=== PATIENT | male | born 1980 | race Caucasian/White ===

== ENCOUNTER 2023-06-23 00:42 | Emergency (ER) | payer OTHER ==
[2023-06-23] MEDS: Diphtheria,Pertussis(Acell),Tetanus Vaccine 0.5 ML Syringe IM ONE (01:18)
[2023-06-23] MEDS ORDERED: Acetaminophen/HYDROcodone 325-5 MG Tab ONE (02:30)
== END 2023-06-23 02:47 | disposition home or self-care (01) ==
LOC: LB.ED 00:42
DX: S02.2XXA Fracture of nasal bones, initial encounter for closed fracture (principal); S02.19XA Other fracture of base of skull, initial encounter for closed fracture; Z23 Encounter for immunization; Y04.1XXA Assault by human bite, initial encounter
CPT/HCPCS: 70450; 70486; 90471; 90715; 99284; A9270